=== PATIENT | female | born 1970 | race Two or more races ===

== ENCOUNTER 2016-08-01 14:56 | Emergency (ER) | payer OTHER ==
[~2016-08-01] VITALS: Ht 170.2 cm; Wt 108.4 kg
--- NOTE | 2016-08-01 15:05 | NUR ---
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 SKIN WARM AND DRY TO TOUCH. PT REPORTED TAKING NITRO AND CLONODINE FROM HOME UNSURE IF MEDS WAS OR NOT WITH NO RELIEF. VSS. PT AAOX3. SEEN BY MD FOR EVAL. SAFETY AND COMFORT MEASURES PROVIDED. WILL MONITOR.
--- NOTE | 2016-08-01 15:15 | NUR ---
IV ACCESS STARTED. BLOOD DRAWN FOR LABS.
--- NOTE | 2016-08-01 15:21 | NUR ---
LOKI DEWITT AT BS.
[2016-08-01 15:27] LABS: BASOPHILS # (AUTO) 0.1 /CMM (0.0-0.2); BASOPHILS % (AUTO) 0.6 % (0.0-2.0); EOSINOPHILS # (AUTO) 0.2 /CMM (0.0-0.7); EOSINOPHILS % (AUTO) 1.3 % (0.0-6.0); HEMATOCRIT 39 % (33-45); HEMOGLOBIN 12.7 g/dL (11.5-14.8); LYMPHOCYTES % (AUTO) 15.4 % (20.0-44.0); MEAN CORPUSCULAR HEMOGLOBIN 27 PG (26.0-33.0); MEAN CORPUSCULAR HGB CONC 33 g/dl (31.0-36.0); MEAN CORPUSCULAR VOLUME 83 fL (82-100); MONOCYTES # (AUTO) 0.8 /CMM (0.1-1.30); MONOCYTES % (AUTO) 6.3 % (2.0-12.0); NEUTROPHILS # (AUTO) 9.8 /CMM (1.8-8.9); NEUTROPHILS % (AUTO) 76.4 % (43.0-81.0); PLATELET COUNT (AUTO) 302 /CMM (150-450); RDW COEFFICIENT OF VARIATION 18.2 (11.5-15.0); RED BLOOD CELL COUNT(AUTO) 4.69 MIL/uL (4.0-5.2); WHITE BLOOD COUNT (AUTO) 12.9 K/uL (4.3-11.0)
[2016-08-01 15:36] LABS: CALCIUM, SERUM 8.5 mg/dL (8.5-10.1); CARBON DIOXIDE 29 mmol/L (21-32); CHLORIDE 102 mmol/L (98-107); CREATININE 1.1 mg/dL (0.6-1.3); GFR 53 mL/min (>60); GLUCOSE 161 mg/dL (74-106); POTASSIUM 3.1 mmol/L (3.5-5.1); SODIUM SERUM 139 mmol/L (136-145); UREA NITROGEN, BLOOD 11 mg/dL (7-18)
[2016-08-01 15:40] LABS: INR 1.01 (0.87-1.13); PROTHROMBIN TIME 10.5 SECS (9.5-12.7)
[2016-08-01 15:44] LABS: TROPONIN I < 0.017 ng/mL (0.00-0.056)
[2016-08-01 15:56] LABS: D-DIMER 1.24 mg/L(FEU (0.17-0.50)
[2016-08-01] MEDS ORDERED: POTASSIUM CHLORIDE 20 MEQ TAB.PRT.SR PO ONE ×2 (16:30→16:45)
[2016-08-01] MEDS ORDERED: IOHEXOL-350 100 ML VIAL IV ONE (16:30)
--- NOTE | 2016-08-01 16:30 | NUR ---
PT TAKEN TO CT.
[2016-08-01 18:37] VITALS: BP 142/85
--- NOTE | 2016-08-01 18:37 | NUR ---
IV removed. Catheter intact and site benign. Pressure and 4x4 applied to site. No bleeding noted.Patient discharged to home in stable condition. Written and verbal after care instructions given. Patient verbalizes understanding of instruction.
== END 2016-08-01 18:38 | disposition home or self-care (01) ==
LOC: ER 14:59
DX: R00.2 Palpitations (principal); R07.89 Other chest pain; E87.6 Hypokalemia; R94.31 Abnormal electrocardiogram [ECG] [EKG]; I10 Essential (primary) hypertension; E11.9 Type 2 diabetes mellitus without complications; D64.9 Anemia, unspecified
CPT/HCPCS: 36415; 71010; 71275; 80048; 84484 ×2; 84703; 85025; 85378; 85730; 93005 ×2; 99285; A4606; Q9967; Z7610